=== PATIENT | female | born 1955 | race Caucasian/White ===

== ENCOUNTER → 2018-01-23 | Outpatient (CLI) | payer BC ==
[~2018-01-23] MED LIST: ASPI81CH
== END | disposition home or self-care (01) ==
LOC: PLD 11:24 → LAB SHORT 11:24
DX: D22.72 Melanocytic nevi of left lower limb, including hip (principal)
CPT/HCPCS: 88305

== ENCOUNTER → 2018-07-29 | Outpatient (CLI) | payer BC | END | disposition home or self-care (01) | LOC: LAB SHORT 11:02 → PLD 11:02 | DX: L57.0 Actinic keratosis (principal); L81.4 Other melanin hyperpigmentation | CPT/HCPCS: 88305 ==

== ENCOUNTER 2019-07-17 15:30 | Inpatient (IN) | payer BC ==
[~2019-07-17] VITALS: Ht 162.6 cm; Wt 86.2 kg
[~2019-07-17 15:30] MED LIST changes: +CELE100 PO; +HYDCHL25 PO; +IBUP800 PO
[2019-07-22] MEDS ORDERED: MUPIROCIN (06:43)
--- NOTE | 2019-07-22 18:23 | NUR ---
SUMMARY DENIES ANY PAIN, PT HAS NOT HAD ANY PAIN MEDS SINCE POST OP, AMBULATED X3 DOWN THE HALLS W/ STANDBY ASSIST, TOLERATING WELL, VOIDING WITHOUT DIFFICULTY, OOB TO RECLINER, POLAR PACK TO R HIP, DSG C/D/I, REPORTS ONLY HAVING INCISIONAL PAIN, BUT VERY MINIMAL, HAS DENIED ANY NEED FOR ANY PAIN MEDS OTHER THAN SCHEDULED TYLENOL AND TORADOL, EATING REGULAR DINNER, NO ACUTE CHANGES THIS SHIFT.
--- NOTE | 2019-07-23 01:47 | NUR ---
ASSUMED CARE FROM AARON RN, PATIENT CURRENTLY SLEEPING IN BED.
[2019-07-23 03:51] LABS: BASOPHILS ABSOLUTE AUTO 0.02 K/mm3 (0.00-0.23); BASOPHILS PERCENT AUTO 0 % (0-2); EOSINOPHILS ABSOLUTE AUTO 0.02 K/mm3 (0.00-0.68); EOSINOPHILS PERCENT AUTO 0 % (0-6); Hematocrit 32.9 % (33.0-51.0); Hemoglobin 10.9 g/dL (11.5-16.0); IMMATURE GRAN ABSOLUTE AUTO 0.05 K/mm3 (0.00-0.10); IMMATURE GRAN PERCENT AUTO 0 % (0-1); LYMPHOCYTES ABSOLUTE AUTO 2.56 K/mm3 (0.84-5.20); LYMPHOCYTES PERCENT AUTO 17 % (21-46); MONOCYTES ABSOLUTE AUTO 1.03 K/mm3 (0.16-1.47); MONOCYTES PERCENT AUTO 7 % (4-13); Mean Corpuscular HGB 30.6 pg (26.0-34.0); Mean Corpuscular HGB Conc 33.1 g/dL (31.5-36.5); Mean Corpuscular Volume 92 fL (80-100); Mean Platelet Volume 10.1 fL (9.1-12.4); NEUTROPHILS ABSOLUTE AUTO 11.37 K/mm3 (1.96-9.15); NEUTROPHILS PERCENT AUTO 76 % (41-73); Platelet Count 265 K/mm3 (150-400); RDW Coefficient Variation 12.8 % (11.7-14.2); RDW Standard Deviation 44.4 fL (35.1-46.3); Red Blood Cell Count 3.56 M/mm3 (3.80-5.20); White Blood Cell Count 15.05 K/mm3 (4.00-11.30)
[2019-07-23 04:06] LABS: Anion Gap 7 mmol/L (6-16); Blood Urea Nitrogen 26 mg/dL (8-24); CO2, Blood 27 mmol/L (21-32); Calcium, Blood 8.3 mg/dL (8.5-10.1); Chloride, Blood 109 mmol/L (98-108); Creatinine, Blood 0.93 mg/dL (0.40-1.00); Glomerular Filtration Rate >60 (60-); Glucose, Blood 106 mg/dL (70-99); Potassium, Blood 3.9 mmol/L (3.5-5.5); Sodium, Blood 143 mmol/L (136-145)
--- NOTE | 2019-07-23 05:10 | NUR ---
SHIFT SUMMARY NO CHANGES IN PATIENT CONDITION SINCE ASSUMING CARE. PT HAS DENIED PAIN AND AMBULATED TO RESTROOM ONCE. POLAR ALESHA IN PLACE. PATIENT HAS BEEN RESTING IN BED. CALL LIGHT IN REACH.
[2019-07-23] MEDS ORDERED: Celebrex200 MG PO (09:04)
[2019-07-23] MEDS ORDERED: Aspir 8181 MG PO (09:05)
[2019-07-23] MEDS ORDERED: Percocet 5-3251 EACH PO (09:07)
--- NOTE | 2019-07-23 10:00 | NUR ---
PATIENT D/C'D HOME AT THIS TIME W/SPOUSE. PT STATES UNDERSTANDING OF MEDS, WOUND CARE, ACTIVITY, OP PT, F/U APPT, ETC. PATIENT STATES PAIN CONTROLLED WITH APAP AND TORADOL. VOIDING, TOLERATING PO. NO C/O OR CHANGES AT THIS TIME.
== END 2019-07-23 10:01 | disposition home or self-care (01) | DRG 470 ==
LOC: SURS 07-22 06:00 → PRE IP 07-22 07:30 → SURS 07-22 10:22
PROVIDERS: ADMIT Orthopaedic Surgery
PROC: 0SR90JA Replacement of Right Hip Joint with Synthetic Substitute, Uncemented, Open Approach (ICD-10-PCS; principal; 2019-07-22 07:30)
DX: M16.11 Unilateral primary osteoarthritis, right hip (principal); I10 Essential (primary) hypertension
CPT/HCPCS: 36415; 72170; 80048; 85025; 88300; 97110; 97116; 97161; J0171; J0690; J0735; J1100; J1885; J2250; J2405; J2704; J2795; J3010; J7120

== ENCOUNTER 2019-07-21 09:41 | Day surgery (SDC) | payer BC ==
[2019-07-22] MEDS ORDERED: MUPIROCIN (06:43)
== END 2019-07-21 22:45 | disposition home or self-care (01) ==
LOC: PRE 09:41 → LAB SHORT 09:41 → LAB 09:41 → EDSTATUS 09:45 → LAB 22:45
DX: Z47.1 Aftercare following joint replacement surgery (principal); Z96.641 Presence of right artificial hip joint
CPT/HCPCS: 36415; 86850; 86900; 86901

== ENCOUNTER → 2020-01-20 | Outpatient (CLI) | payer BC ==
[~2020-01-20] MED LIST changes: +Aspir 8181 MG PO; +Celebrex200 MG PO; +MUPIROCIN; +Percocet 5-3251 EACH PO
[2020-01-23 15:10] LABS: HPV 16 Negative (Negative); HPV 18 Negative (Negative); HPV OTHER HR TYPES Negative (Negative)
== END | disposition home or self-care (01) ==
LOC: LAB 16:50 → LAB SHORT 16:50
PROVIDERS: Internal Medicine
DX: Z12.4 Encounter for screening for malignant neoplasm of cervix (principal)
CPT/HCPCS: 87624; G0145

== ENCOUNTER → 2022-08-11 | Outpatient (CLI) | payer OTHER | END | disposition home or self-care (01) | LOC: LAB 10:30 → LAB SHORT 10:30 | DX: R73.09 Other abnormal glucose (principal) | CPT/HCPCS: 83036 ==

== ENCOUNTER → 2023-05-16 | Outpatient (CLI) | payer OTHER ==
[~2023-05-16] MED LIST changes: +ASPI81CH PO; +TRAM50 PO
[2023-05-16 11:28] LABS: Source, Urine Clean Catch
[2023-05-16 13:06] LABS: Appearance, Urine Hazy (Clear); Blood, Urine 5+ (Neg); Glucose Qualitative, Urine Neg (Neg); Ketones, Urine Neg (Neg); Leukocyte Esterase, Urine 3+ (Neg); Nitrite, Urine Pos (Neg); Protein, Urine 3+ (Neg); Specific Gravity, Urine 1.015 (1.003-1.022); Urobilinogen, Urine 1+ (Normal)
[2023-05-16 13:19] LABS: Bilirubin, Urine 1+ (Neg); Color, Urine Amber (P-Yellow)
[2023-05-16 13:20] LABS: Bacteria Many /hpf; Red Blood Cells, Urine TNTC /hpf (0-2); Squamous Epithelial Cells Rare /hpf (Few); White Blood Cells, Urine TNTC /hpf (0-5)
[2023-05-16 13:21] LABS: Calcium Oxalate Crystals Few /hpf
== END ==
LOC: LAB SHORT 11:28 → LAB 11:28
PROVIDERS: Internal Medicine
DX: R30.0 Dysuria (principal)
CPT/HCPCS: 81001; 87077; 87086; 87186

== ENCOUNTER → 2023-06-13 | Outpatient (CLI) | payer OTHER ==
[2023-06-13 10:25] LABS: Source, Urine Clean Catch
[2023-06-13 13:46] LABS: Appearance, Urine Hazy (Clear); Bilirubin, Urine Neg (Neg); Blood, Urine 1+ (Neg); Color, Urine Yellow (P-Yellow); Glucose Qualitative, Urine Neg (Neg); Ketones, Urine Neg (Neg); Leukocyte Esterase, Urine 1+ (Neg); Nitrite, Urine Neg (Neg); Protein, Urine 1+ (Neg); Urobilinogen, Urine 1+ (Normal)
[2023-06-13 14:37] LABS: Mucus Light (0-Heavy)
[2023-06-13 14:38] LABS: Red Blood Cells, Urine 0-2 /hpf (0-2); White Blood Cells, Urine 50-100 /hpf (0-5)
[2023-06-13 14:39] LABS: Bacteria Many /hpf; Squamous Epithelial Cells Rare /hpf (Few); Transitional Epithelial Cells Rare /hpf (0-Rare)
== END | disposition home or self-care (01) ==
LOC: LAB 10:24 → LAB SHORT 10:24
PROVIDERS: Internal Medicine
DX: R30.0 Dysuria (principal)
CPT/HCPCS: 81001; 87077; 87086; 87186